=== PATIENT | male | born 1995 ===

== ENCOUNTER → 2023-10-19 10:20 | Outpatient (REF) | payer BC, SELFPAY ==
[2023-10-19 11:45] LABS: Rubella Positive
[2023-10-19 12:09] LABS: Hepatitis B Surface Antibody Positive
[2023-10-21 13:58] LABS: Quantiferon Mitogen minus NIL 9.99 IU/mL; Quantiferon NIL 0.01 IU/mL; Quantiferon TB Gold Plus Negative (Negative)
== END ==
LOC: REG 10:20
PROVIDERS: ATTENDING PHYSICIAN Nurse Practitioner Family; FAMILY PHYSICIAN Student in an Organized Health Care Education/Training Program
DX: Z23 Encounter for immunization (principal)
CPT/HCPCS: 36415; 86480; 86706; 86735; 86762; 86765; 86787